=== PATIENT | female | born 1990 | race African-American/Black ===

== ENCOUNTER 2018-02-03 05:54 | Day surgery (SDC) | payer MEDICAID ==
[~2018-02-03] VITALS: Ht 162.6 cm; Wt 67.6 kg
[~2018-02-03 05:54] MED LIST: PREN-88 PO
[2018-02-03 06:54] LABS: UCG SCREEN NEGATIVE
[2018-02-03] MEDS ORDERED: LACTATED RINGERS 1,000 ML IV SCH (07:00)
[2018-02-03] MEDS ORDERED: FENTANYL CITRATE/PF 50MCG/ML 2ML VIAL ONE (08:51)
[2018-02-03] MEDS ORDERED: ONDANSETRON HCL 4MG/2ML VIAL ONE (08:51)
[2018-02-03] MEDS ORDERED: PROPOFOL 200MG/20ML VIAL IV ONE (08:52)
[2018-02-03] MEDS ORDERED: METOCLOPRAMIDE HCL 10MG/2ML VIAL ONE (08:52)
[2018-02-03] MEDS ORDERED: LIDOCAINE HCL/PF 1% 10 MG/ML 5ML VIAL ONE (08:52)
[2018-02-03] MEDS ORDERED: MIDAZOLAM HCL 2 MG/2 ML VIAL ONE (08:54)
[2018-02-03] MEDS ORDERED: FERRIC SUBSULFATE SOLN 8GM TOP SCH (09:15)
[2018-02-03] MEDS ORDERED: POTASSIUM IODIDE/IODINE 20ML TOP SCH (09:15)
== END 2018-02-03 12:00 | disposition home or self-care (01) ==
LOC: OR 05:54
PROVIDERS: ATTEND Obstetrics & Gynecology
DX: D06.0 Carcinoma in situ of endocervix (principal); Z79.899 Other long term (current) drug therapy; F17.210 Nicotine dependence, cigarettes, uncomplicated; Z86.2 Personal history of diseases of the blood and blood-forming organs and certain disorders involving the immune mechanism
CPT/HCPCS: 57522; 81025; 88307; J2250; J2405; J2765; J3010; J3490; J7120; J2704

== ENCOUNTER 2021-05-09 15:24 | Emergency (ER) | payer OTHER ==
[~2021-05-09] VITALS: Ht 162.6 cm; Wt 73.0 kg
[2021-05-09] MEDS ORDERED: OLANZAPINE 10 MG/VIAL IM STA (16:18)
[2021-05-09 17:10] LABS: CLARITY URINE CLEAR (CLEAR); COLOR URINE YELLOW (YELLOW); KETONES URINE 1+ (NEGATIVE); LEUKOCYTE ESTERASE URINE NEGATIVE (NEGATIVE); NITRITE URINE NEGATIVE (NEGATIVE); OCCULT BLOOD URINE 1+ (NEGATIVE); PROTEIN URINE NEGATIVE (NEGATIVE); SPECIFIC GRAVITY URINE 1.008 (1.005-1.030)
[2021-05-09 17:31] LABS: *AMPHETAMINES SCREEN URINE NEGATIVE (NEGATIVE); *BARBITURATES SCREEN URINE NEGATIVE (NEGATIVE); *BENZODIAZEPINES SCREEN URINE NEGATIVE (NEGATIVE)
[2021-05-09 17:32] LABS: *COCAINE SCREEN URINE NEGATIVE (NEGATIVE); OPIATES URINE SCREEN NEGATIVE (NEGATIVE); PHENCYCLIDINE URINE SCREEN NEGATIVE (NEGATIVE)
[2021-05-09 17:34] LABS: METHADONE URINE SCREEN NEGATIVE (NEGATIVE)
[2021-05-09 17:47] LABS: CANNABINOID URINE SCREEN PRESUMTIVE POSITIVE (NEGATIVE)
[2021-05-09 19:15] LABS: BASOPHILS % 0.2 % (0.0-2.0); EOSINOPHILS % 0.1 % (0.0-5.0); HEMATOCRIT. 37.3 % (36.0-48.0); HEMOGLOBIN. 12.7 g/dL (12.0-16.0); LYMPHOCYTES % 20.5 % (20.0-50.0); MEAN CORPUSCULAR HEMOGLOBIN 27.5 pg (28.0-32.0); MEAN CORPUSCULAR VOLUME 80.7 fL (81.0-99.0); MEAN PLATELET VOLUME 7.3 fl (7.4-10.4); MONOCYTES % 8.7 % (2.0-8.0); NEUTROPHILS % 70.5 % (40.0-76.0); PLATELET 250 x1000/uL (130-400); RED BLOOD CELL COUNT 4.62 mill/uL (4.2-5.4); RED CELL DISTRIBUTION WIDTH 13.5 % (11.6-14.6)
[2021-05-09 19:26] LABS: CHLORIDE 106 mEq/L (98-107)
[2021-05-09 19:30] LABS: ETHANOL BLOOD < 10 mg/dL
[2021-05-09 22:20] VITALS: BP 119/75
== END 2021-05-09 22:30 | disposition home or self-care (01) ==
LOC: ER 15:24
DX: F29 Unspecified psychosis not due to a substance or known physiological condition (principal); F12.10 Cannabis abuse, uncomplicated; F20.9 Schizophrenia, unspecified
CPT/HCPCS: 36415; 80053; 80305; 80320; 81003; 85025; 96372; 99283; J3490; G0480